=== PATIENT | male | born 1950 | race Caucasian/White ===

== ENCOUNTER 2022-11-11 15:12 | Inpatient (IN) | payer MEDICARE, OTHER ==
[~2022-11-11] VITALS: Ht 167.6 cm; Wt 79.8 kg
[2022-11-11] MEDS ORDERED: NAPR-1009 PO (16:46)
[2022-11-11] MEDS ORDERED: METF-881 PO (16:46)
[2022-11-11 19:15] VITALS: BP 121/69; TEMP 98; O2SAT 97
[2022-11-11] MEDS ORDERED: clonazePAM 0.5 MG TABLET PO PRN (20:00)
[2022-11-11] MEDS ORDERED: MAGNESIUM HYDROXIDE 30 ML UDC PO PRN (20:00)
[2022-11-11] MEDS ORDERED: BLOOD SUGAR DIAGNOSTIC 1 EACH STRIP IN ONE (20:00)
[2022-11-11] MEDS ORDERED: MAG HYDROX/AL HYDROX/SIMETH 30 ML UDC PO PRN (20:00)
[2022-11-11] MEDS ORDERED: ACETAMINOPHEN 325 MG TABLET PO PRN (20:00)
[2022-11-11] MEDS ORDERED: TEMAZEPAM 7.5 MG CAPSULE PO PRN (20:00)
[2022-11-11 20:25] VITALS: BP 121/69; TEMP 98; O2SAT 97
[2022-11-12 08:00] VITALS: BP 128/83; TEMP 98.1; O2SAT 96
[2022-11-12] MEDS: risperiDONE 1 MG TABLET PO SCH (11:21)
[2022-11-12] MEDS: ESCITALOPRAM OXALATE (10 MG) 10 MG TABLET PO SCH (11:21)
[2022-11-12] MEDS ORDERED: DEXTROSE 50%-WATER 50 ML DISP.SYRIN IV PRN (12:30)
[2022-11-12 14:56] LABS: ALBUMIN 3.2 g/dL (3.4-5.0); BILIRUBIN,TOTAL 0.2 mg/dL (0.2-1.0); CREATININE 0.8 mg/dL (0.6-1.3); POTASSIUM 3.9 mmol/L (3.5-5.1); TOTAL PROTEIN, SERUM 7.1 g/dL (6.4-8.2)
[2022-11-12 15:09] LABS: CHOLESTEROL 216 mg/dL (<200); HDL CHOLESTEROL 41 mg/dL (40-60); LDL 128 mg/dL (0-99); TRIGLYCERIDES 438 mg/dL (30-150)
[2022-11-12 16:00] VITALS: BP 134/74; TEMP 98.1; O2SAT 100
[2022-11-12] MEDS ORDERED: NAPROXEN 500 MG TABLET PO PRN (16:00)
[2022-11-12] MEDS: METFORMIN 500 MG TABLET PO SCH (17:51)
[2022-11-12] MEDS: BLOOD SUGAR DIAGNOSTIC 1 EACH STRIP VI SCH ×2 (17:51→21:48)
[2022-11-12] MEDS: INSULIN REGULAR, HUMAN 100 UNIT/ML 3 ML VIAL SQ PRN (17:52)
[2022-11-12 20:00] VITALS: BP 121/69; TEMP 97.9; O2SAT 96
[2022-11-12] MEDS: SIMVASTATIN 10 MG TABLET PO SCH (21:37)
[2022-11-12] MEDS: *INSULIN REGULAR(HUMULIN R)HUM 100 UNIT/ML VIAL SQ PRN (21:49)
[2022-11-13] MEDS: BLOOD SUGAR DIAGNOSTIC 1 EACH STRIP VI SCH ×4 (07:47→21:33)
[2022-11-13 08:00] VITALS: BP 102/52; TEMP 98.2; O2SAT 98
[2022-11-13] MEDS: INSULIN REGULAR, HUMAN 100 UNIT/ML 3 ML VIAL SQ PRN ×4 (08:21→21:35)
[2022-11-13] MEDS: METFORMIN 500 MG TABLET PO SCH ×2 (08:42→17:17)
[2022-11-13] MEDS: ESCITALOPRAM OXALATE (10 MG) 10 MG TABLET PO SCH (08:42)
[2022-11-13] MEDS: risperiDONE 1 MG TABLET PO SCH (08:43)
[2022-11-13 16:00] VITALS: BP 117/70; TEMP 98.1; O2SAT 97
[2022-11-13 20:00] VITALS: BP 112/64; TEMP 98.4; O2SAT 97
[2022-11-13] MEDS: SIMVASTATIN 10 MG TABLET PO SCH (21:18)
[2022-11-13] MEDS: *INSULIN REGULAR(HUMULIN R)HUM 100 UNIT/ML VIAL SQ PRN (21:51)
[2022-11-14 08:00] VITALS: BP 112/73; TEMP 97.8; O2SAT 97
[2022-11-14] MEDS: ESCITALOPRAM OXALATE (10 MG) 10 MG TABLET PO SCH (08:33)
[2022-11-14] MEDS: BLOOD SUGAR DIAGNOSTIC 1 EACH STRIP VI SCH ×4 (08:34→21:24)
[2022-11-14] MEDS: risperiDONE 1 MG TABLET PO SCH (08:34)
[2022-11-14] MEDS: METFORMIN 500 MG TABLET PO SCH ×2 (08:34→17:53)
[2022-11-14] MEDS: INSULIN REGULAR, HUMAN 100 UNIT/ML 3 ML VIAL SQ PRN ×3 (08:42→17:52)
[2022-11-14 16:00] VITALS: BP 123/67; TEMP 98.2; O2SAT 97
[2022-11-14 20:00] VITALS: BP 116/66; TEMP 98.3; O2SAT 95
[2022-11-14] MEDS: SIMVASTATIN 10 MG TABLET PO SCH (21:14)
[2022-11-14] MEDS: TEMAZEPAM 7.5 MG CAPSULE PO PRN (21:15)
[2022-11-14] MEDS: *INSULIN REGULAR(HUMULIN R)HUM 100 UNIT/ML VIAL SQ PRN (21:26)
[2022-11-15] MEDS: BLOOD SUGAR DIAGNOSTIC 1 EACH STRIP VI SCH ×5 (07:46→21:36)
[2022-11-15] MEDS: INSULIN REGULAR, HUMAN 100 UNIT/ML 3 ML VIAL SQ PRN ×3 (07:57→17:24)
[2022-11-15 08:00] VITALS: BP 134/87; TEMP 98.6; O2SAT 100
[2022-11-15] MEDS: METFORMIN 500 MG TABLET PO SCH ×2 (08:17→16:27)
[2022-11-15] MEDS: ESCITALOPRAM OXALATE (10 MG) 10 MG TABLET PO SCH (08:17)
[2022-11-15] MEDS: risperiDONE 1 MG TABLET PO SCH ×2 (08:17→16:27)
[2022-11-15 16:00] VITALS: BP 116/74; TEMP 98.9; O2SAT 95
[2022-11-15 20:00] VITALS: BP 119/78; TEMP 98.4; O2SAT 96
[2022-11-15] MEDS: SIMVASTATIN 10 MG TABLET PO SCH (21:27)
[2022-11-15] MEDS: *INSULIN REGULAR(HUMULIN R)HUM 100 UNIT/ML VIAL SQ PRN (21:39)
[2022-11-16 08:00] VITALS: BP 135/73; TEMP 97.8; O2SAT 95
[2022-11-16] MEDS: BLOOD SUGAR DIAGNOSTIC 1 EACH STRIP VI SCH ×4 (08:25→21:55)
[2022-11-16] MEDS: METFORMIN 500 MG TABLET PO SCH ×2 (08:43→16:59)
[2022-11-16] MEDS: risperiDONE 1 MG TABLET PO SCH ×2 (08:43→16:59)
[2022-11-16] MEDS: ESCITALOPRAM OXALATE (10 MG) 10 MG TABLET PO SCH (08:43)
[2022-11-16] MEDS: INSULIN REGULAR, HUMAN 100 UNIT/ML 3 ML VIAL SQ PRN ×2 (08:44→12:04)
[2022-11-16] MEDS ORDERED: VITAMINS A AND D 56.7 GM TUBE TP PRN (13:00)
[2022-11-16 16:00] VITALS: BP 106/74; TEMP 97.9; O2SAT 97
[2022-11-16 20:33] VITALS: BP 115/69; TEMP 98.1; O2SAT 99
[2022-11-16] MEDS: SIMVASTATIN 10 MG TABLET PO SCH (21:33)
[2022-11-16] MEDS: *INSULIN REGULAR(HUMULIN R)HUM 100 UNIT/ML VIAL SQ PRN (21:54)
[2022-11-17] MEDS: BLOOD SUGAR DIAGNOSTIC 1 EACH STRIP VI SCH ×5 (07:30→21:14)
[2022-11-17 08:00] VITALS: BP 138/74; TEMP 98.1; O2SAT 99
[2022-11-17] MEDS: risperiDONE 1 MG TABLET PO SCH ×2 (08:30→16:52)
[2022-11-17] MEDS: METFORMIN 500 MG TABLET PO SCH ×2 (08:30→16:52)
[2022-11-17] MEDS: ESCITALOPRAM OXALATE (10 MG) 10 MG TABLET PO SCH (08:30)
[2022-11-17] MEDS: *INSULIN REGULAR(HUMULIN R)HUM 100 UNIT/ML VIAL SQ PRN (11:36)
[2022-11-17 16:00] VITALS: BP 124/90; TEMP 97.8; O2SAT 99
[2022-11-17 20:17] VITALS: BP 108/67; TEMP 98.2; O2SAT 96
[2022-11-17] MEDS: SIMVASTATIN 10 MG TABLET PO SCH (21:01)
[2022-11-17] MEDS: TEMAZEPAM 7.5 MG CAPSULE PO PRN (23:30)
[2022-11-18 08:00] VITALS: BP 125/95; TEMP 98.1; O2SAT 99
[2022-11-18] MEDS: *INSULIN REGULAR(HUMULIN R)HUM 100 UNIT/ML VIAL SQ PRN ×4 (08:09→21:26)
[2022-11-18] MEDS: BLOOD SUGAR DIAGNOSTIC 1 EACH STRIP VI SCH ×4 (08:10→21:08)
[2022-11-18] MEDS: METFORMIN 500 MG TABLET PO SCH ×2 (08:33→16:46)
[2022-11-18] MEDS: ESCITALOPRAM OXALATE (10 MG) 10 MG TABLET PO SCH (08:33)
[2022-11-18] MEDS: risperiDONE 1 MG TABLET PO SCH ×2 (08:33→16:46)
[2022-11-18 16:00] VITALS: BP 126/72; TEMP 98.7; O2SAT 96
[2022-11-18 20:15] VITALS: BP 136/93; TEMP 98.1; O2SAT 100
[2022-11-18] MEDS: SIMVASTATIN 10 MG TABLET PO SCH (21:22)
[2022-11-19] MEDS: BLOOD SUGAR DIAGNOSTIC 1 EACH STRIP VI SCH ×4 (07:53→21:34)
[2022-11-19 08:00] VITALS: BP 132/84; TEMP 97.9; O2SAT 97
[2022-11-19] MEDS: INSULIN REGULAR, HUMAN 100 UNIT/ML 3 ML VIAL SQ PRN ×2 (08:07→16:45)
[2022-11-19] MEDS: risperiDONE 1 MG TABLET PO SCH ×2 (08:55→16:27)
[2022-11-19] MEDS: METFORMIN 500 MG TABLET PO SCH ×2 (08:55→16:27)
[2022-11-19] MEDS: ESCITALOPRAM OXALATE (10 MG) 10 MG TABLET PO SCH (08:55)
[2022-11-19 16:00] VITALS: BP 110/68; TEMP 98.8; O2SAT 97
[2022-11-19 20:00] VITALS: BP 117/70; TEMP 98.6; O2SAT 96
[2022-11-19] MEDS: SIMVASTATIN 10 MG TABLET PO SCH (21:33)
[2022-11-19] MEDS: *INSULIN REGULAR(HUMULIN R)HUM 100 UNIT/ML VIAL SQ PRN (21:36)
[2022-11-20 07:05] LABS: CALCIUM, SERUM 8.9 mg/dL (8.5-10.1); CREATININE 0.9 mg/dL (0.6-1.3); POTASSIUM 4.2 mmol/L (3.5-5.1)
[2022-11-20] MEDS: INSULIN REGULAR, HUMAN 100 UNIT/ML 3 ML VIAL SQ PRN ×3 (07:51→17:26)
[2022-11-20] MEDS: BLOOD SUGAR DIAGNOSTIC 1 EACH STRIP VI SCH ×4 (07:51→21:36)
[2022-11-20 08:00] VITALS: BP 131/79; TEMP 98; O2SAT 100
[2022-11-20] MEDS: risperiDONE 1 MG TABLET PO SCH ×2 (08:31→16:24)
[2022-11-20] MEDS: ESCITALOPRAM OXALATE (10 MG) 10 MG TABLET PO SCH (08:31)
[2022-11-20] MEDS: METFORMIN 500 MG TABLET PO SCH ×2 (08:31→16:24)
[2022-11-20 16:00] VITALS: BP 145/64; TEMP 97.8; O2SAT 96
[2022-11-20 20:00] VITALS: BP 129/76; TEMP 98.3; O2SAT 98
[2022-11-20] MEDS: SIMVASTATIN 10 MG TABLET PO SCH (21:35)
[2022-11-20] MEDS: *INSULIN REGULAR(HUMULIN R)HUM 100 UNIT/ML VIAL SQ PRN (21:38)
[2022-11-21] MEDS: BLOOD SUGAR DIAGNOSTIC 1 EACH STRIP VI SCH ×4 (07:03→22:49)
[2022-11-21 08:00] VITALS: BP 118/79; TEMP 97.8; O2SAT 93
[2022-11-21] MEDS: risperiDONE 1 MG TABLET PO SCH ×2 (08:11→16:25)
[2022-11-21] MEDS: METFORMIN 500 MG TABLET PO SCH ×2 (08:11→16:25)
[2022-11-21] MEDS: ESCITALOPRAM OXALATE (10 MG) 10 MG TABLET PO SCH (08:11)
[2022-11-21] MEDS: INSULIN REGULAR, HUMAN 100 UNIT/ML 3 ML VIAL SQ PRN ×3 (08:13→17:49)
[2022-11-21 16:00] VITALS: BP 106/81; TEMP 98.5; O2SAT 99
[2022-11-21 20:45] VITALS: BP 120/71; TEMP 98.1; O2SAT 98
[2022-11-21] MEDS: SIMVASTATIN 10 MG TABLET PO SCH (22:19)
[2022-11-21] MEDS: *INSULIN REGULAR(HUMULIN R)HUM 100 UNIT/ML VIAL SQ PRN (22:48)
[2022-11-22] MEDS: BLOOD SUGAR DIAGNOSTIC 1 EACH STRIP VI SCH ×4 (07:30→22:48)
[2022-11-22] MEDS: INSULIN REGULAR, HUMAN 100 UNIT/ML 3 ML VIAL SQ PRN ×4 (07:30→18:01)
[2022-11-22 08:00] VITALS: BP 144/72; TEMP 97.7; O2SAT 96
[2022-11-22] MEDS: risperiDONE 1 MG TABLET PO SCH ×2 (08:42→16:27)
[2022-11-22] MEDS: METFORMIN 500 MG TABLET PO SCH ×2 (08:42→16:28)
[2022-11-22] MEDS: ESCITALOPRAM OXALATE (10 MG) 10 MG TABLET PO SCH (08:42)
[2022-11-22 16:00] VITALS: BP 130/65; TEMP 97.9; O2SAT 99
[2022-11-22 20:00] VITALS: BP 134/69; TEMP 98.4
[2022-11-22] MEDS: SIMVASTATIN 10 MG TABLET PO SCH (21:59)
[2022-11-22] MEDS: *INSULIN REGULAR(HUMULIN R)HUM 100 UNIT/ML VIAL SQ PRN (22:51)
[2022-11-23] MEDS: BLOOD SUGAR DIAGNOSTIC 1 EACH STRIP VI SCH ×4 (07:47→22:15)
[2022-11-23 08:05] VITALS: BP 142/94; TEMP 96.5; O2SAT 99
[2022-11-23] MEDS: METFORMIN 500 MG TABLET PO SCH ×2 (08:33→16:42)
[2022-11-23] MEDS: ESCITALOPRAM OXALATE (10 MG) 10 MG TABLET PO SCH (08:33)
[2022-11-23] MEDS: risperiDONE 1 MG TABLET PO SCH ×2 (08:33→16:42)
[2022-11-23] MEDS: INSULIN REGULAR, HUMAN 100 UNIT/ML 3 ML VIAL SQ PRN ×3 (08:35→16:51)
[2022-11-23 15:57] VITALS: BP 101/64; TEMP 97.8; O2SAT 96
[2022-11-23 20:17] VITALS: BP 128/90; TEMP 97.9; O2SAT 98
[2022-11-23] MEDS: SIMVASTATIN 10 MG TABLET PO SCH (22:10)
[2022-11-23] MEDS: *INSULIN REGULAR(HUMULIN R)HUM 100 UNIT/ML VIAL SQ PRN (22:18)
[2022-11-24] MEDS: BLOOD SUGAR DIAGNOSTIC 1 EACH STRIP VI SCH ×2 (07:43→11:59)
[2022-11-24] MEDS: INSULIN REGULAR, HUMAN 100 UNIT/ML 3 ML VIAL SQ PRN ×2 (07:48→11:59)
[2022-11-24 08:00] VITALS: BP 154/76; TEMP 98.6; O2SAT 98
[2022-11-24] MEDS: METFORMIN 500 MG TABLET PO SCH (09:00)
[2022-11-24] MEDS: risperiDONE 1 MG TABLET PO SCH (09:00)
[2022-11-24] MEDS: ESCITALOPRAM OXALATE (10 MG) 10 MG TABLET PO SCH (09:00)
== END 2022-11-24 13:45 | DRG 885 ==
LOC: GPS 16:21
PROVIDERS: ADMIT Psychiatry & Neurology Psychiatry; ATTEND Student in an Organized Health Care Education/Training Program
DX: F31.9 Bipolar disorder, unspecified (principal); E11.65 Type 2 diabetes mellitus with hyperglycemia; R45.851 Suicidal ideations; E44.1 Mild protein-calorie malnutrition; F20.9 Schizophrenia, unspecified; Z59.02 Unsheltered homelessness; Z80.9 Family history of malignant neoplasm, unspecified; Z81.1 Family history of alcohol abuse and dependence; E78.5 Hyperlipidemia, unspecified; M19.90 Unspecified osteoarthritis, unspecified site; L84 Corns and callosities; L60.3 Nail dystrophy; E03.8 Other specified hypothyroidism; Z79.899 Other long term (current) drug therapy; F17.210 Nicotine dependence, cigarettes, uncomplicated; Z63.8 Other specified problems related to primary support group; Z91.148 Patient's other noncompliance with medication regimen for other reason
CPT/HCPCS: 36415; 80048-TC; 80053-TC; 80061-TC; 82962-TC; 84439-TC; 84443-TC; 97112-TC; 97116-TC; 97530-TC; J1815